=== PATIENT | male | born 1990 | race African-American/Black ===

== ENCOUNTER 2021-04-09 09:22 | Emergency (ER) | payer MEDICAID, OTHER ==
[~2021-04-09] VITALS: Ht 162.6 cm; Wt 68.0 kg
[2021-04-09 09:38] VITALS: BP 132/88
[2021-04-09] MEDS ORDERED: HYDROcodone-ACET 10/325MG TAB PO ONE (11:45)
[2021-04-09 13:42] LABS: Urine Bacteria NONE SEEN /hpf (None Seen); Urine Blood Negative /uL (Negative); Urine Mucus FEW (None Seen); Urine Specific Gravity 1.028 (1.001-1.035); Urine WBC 72 /hpf (0 - 3)
== END 2021-04-09 14:44 | disposition home or self-care (01) ==
LOC: ER 09:22
DX: K40.90 Unilateral inguinal hernia, without obstruction or gangrene, not specified as recurrent (principal); N39.0 Urinary tract infection, site not specified; F17.210 Nicotine dependence, cigarettes, uncomplicated
CPT/HCPCS: 76870; 81001